=== PATIENT | female | born 1950 | race Caucasian/White ===

== ENCOUNTER 2016-12-03 09:17 | Emergency (ER) | payer MEDICARE ==
[2016-12-03 09:37] VITALS: BMI 30.4
[2016-12-03 09:41] VITALS: TEMP 98
--- NOTE | 2016-12-03 10:42 | C.PDOC ---
History Of Present Illness 66 yr old female with PMHx of HTN, presents to the ER stating she ran out of her blood pressure medication 2 days ago and is requesting a refill. Patient denies fever, chest pain, SOB, nausea, vomiting, headache, weakness or numbness. Time Seen by Provider: 12/03/16 10:25 Chief Complaint (Nursing): High Blood Pressure History Per: Patient History/Exam Limitations: no limitations Onset/Duration Of Symptoms: Days (2 ) Past Medical History Reviewed: Historical Data, Nursing Documentation, Vital Signs Vital Signs: Last Vital Signs Temp 98.0 F 12/03/16 09:37 Pulse 65 12/03/16 11:22 Resp 18 12/03/16 11:22 BP 152/85 H 12/03/16 11:27 Pulse Ox 98 12/03/16 11:22 - Medical History PMH: Anxiety, HTN - [facility] Procedures INJECT/INFUSE NEC (10/31/13) Family History: States: No Known Family Hx - Social History Hx Alcohol Use: No Hx Substance Use: No - Immunization History Hx Tetanus Toxoid Vaccination: No Hx Influenza Vaccination: Yes (2017) Hx Pneumococcal Vaccination: No Review Of Systems Except As Marked, All Systems Reviewed And Found Negative. Constitutional: Negative for: Fever Cardiovascular: Negative for: Chest Pain Respiratory: Negative for: Shortness of Breath Gastrointestinal: Negative for: Nausea, Vomiting Neurological: Negative for: Weakness, Numbness, Headache Physical Exam - Physical Exam Appears: Non-toxic, No Acute Distress Skin: Warm, Dry, No Rash Head: Atraumatic, Normacephalic Oral Mucosa: Moist Chest: Symmetrical, No Tenderness Cardiovascular: Rhythm Regular, No Murmur Respiratory: Normal Breath Sounds, No Rales, No Rhonchi, No Stridor, No Wheezing Extremity: Normal ROM, No Swelling Neurological/Psych: Oriented x3, Normal Speech, Normal Motor ED Course And Treatment O2 Sat by Pulse Oximetry: 99 Medical Decision Making Medical Decision Making: PLAN: * Lisinopril PO Disposition Counseled Patient/Family Regarding: Need For Followup - Disposition Referrals: [facility] [Outside] Disposition: HOME/ ROUTINE Disposition Time: 11:03 Condition: GOOD Prescriptions: Lisinopril/Hydrochlorothiazide [Lisinopril-Hctz 20-25 mg Tab] 1 tab PO DAILY # 30 tablet Forms: Gen Discharge Inst Faroese - Clinical Impression Clinical Impression: Medication refill - Scribe Statement The provider has reviewed the documentation as recorded by the Scribe Jenae Barth Provider Attestation: All medical record entries made by the Mitchibe were at my direction and personally dictated by me. I have reviewed the chart and agree that the record accurately reflects my personal performance of the history, physical exam, medical decision making, and the department course for this patient. I have also personally directed, reviewed, and agree with the discharge instructions and disposition.
[2016-12-03 11:23] VITALS: PULSE 65; RESP 18
[2016-12-03 11:28] VITALS: BP 152/85
[2016-12-03 11:53] VITALS: O2SAT 99
== END 2016-12-03 11:28 | disposition home or self-care (01) ==
LOC: C.ER 09:17
DX: Z76.0 Encounter for issue of repeat prescription (principal)

== ENCOUNTER 2017-01-18 19:28 | Observation (INO) | payer MEDICARE, OTHER ==
[2017-01-18 19:28] VITALS: BMI 30.4
--- NOTE | 2017-01-18 20:29 | C.PDOC ---
History Of Present Illness Patient, with a past medical history of hypertension and anxiety, presents to the ED complaining of possible rectal bleeding that began prior to arrival. Patient states she saw blood on her pants, but was not sure where she was bleeding from. Patient denies any fever, chills, nausea, or vomiting. Time Seen by Provider: 01/18/17 20:28 Chief Complaint (Nursing): GI Problem History Per: Patient History/Exam Limitations: no limitations Onset/Duration Of Symptoms: Mins (prior to arrival ) Severity: None Pain Scale Rating Of: 0 Recent travel outside of the [place]: No Additional History Per: Patient Past Medical History Reviewed: Historical Data, Nursing Documentation, Vital Signs Vital Signs: Last Vital Signs Temp 98.5 F 01/18/17 19:34 Pulse 102 H 01/18/17 19:34 Resp 19 01/18/17 19:34 BP 150/90 01/18/17 19:34 Pulse Ox 99 01/18/17 21:40 - Medical History PMH: Anxiety, HTN - [facility] Procedures INJECT/INFUSE NEC (10/31/13) Family History: States: No Known Family Hx - Social History Hx Alcohol Use: No Hx Substance Use: No - Immunization History Hx Tetanus Toxoid Vaccination: No Hx Influenza Vaccination: Yes (2017) Hx Pneumococcal Vaccination: No Review Of Systems Constitutional: Negative for: Fever, Chills ENT: Negative for: Throat Pain Cardiovascular: Negative for: Chest Pain Respiratory: Negative for: Shortness of Breath Gastrointestinal: Positive for: Other (rectal bleeding). Negative for: Nausea, Vomiting Genitourinary: Negative for: Dysuria Musculoskeletal: Negative for: Back Pain Skin: Negative for: Rash, Lesions, Jaundice, Bruising Neurological: Negative for: Weakness Psych: Negative for: Anxiety Physical Exam - Physical Exam Appears: Non-toxic, No Acute Distress Skin: Warm, Dry Head: Atraumatic, Normacephalic Eye(s): bilateral: Normal Inspection Oral Mucosa: Moist Neck: Supple Chest: Symmetrical Cardiovascular: Rhythm Regular Respiratory: No Rales, No Rhonchi, No Wheezing Gastrointestinal/Abdominal: Soft, No Tenderness, No Distention, No Guarding, No Rebound Rectal: Normal Exam, No Hemorrhoids, No Mass, No Tenderness, Other ((-)bleeding (+)brown stool in vault) Back: No CVA Tenderness Pelvic: No Vaginal Bleeding, No Vaginal Discharge, No Other (no obvious signs of blood or bleeding) Extremity: Bilateral: Atraumatic, Normal Color And Temperature Neurological/Psych: Oriented x3, Normal Speech, Normal Cognition Gait: Steady ED Course And Treatment - Laboratory Results Result Diagrams: 01/18/17 20:44 01/18/17 20:44 O2 Sat by Pulse Oximetry: 99 (room air) Pulse Ox Interpretation: Normal Progress Note: Plan: Labs, Chest x-ray, Protonix, IV fluids Disposition Discussed With DrAnkit: Mimi Riggs Comment: accepted the pt on his service and took over the care at 10:32 PM Counseled Patient/Family Regarding: Studies Performed, Diagnosis - Disposition Disposition: HOSPITALIZED Disposition Time: 20:29 Condition: FAIR - POA Present On Arrival: None - Clinical Impression Clinical Impression: Rectal bleed - Scribe Statement The provider has reviewed the documentation as recorded by the Scribe Danielle Riggs Provider Attestation: All medical record entries made by the Scribe were at my direction and personally dictated by me. I have reviewed the chart and agree that the record accurately reflects my personal performance of the history, physical exam, medical decision making, and the department course for this patient. I have also personally directed, reviewed, and agree with the discharge instructions and disposition.
[2017-01-18] MEDS ORDERED: Pantoprazole 80 MG in Sodium Chloride 0.9% 100 ML IV STA (20:35)
[2017-01-18] MEDS ORDERED: Sodium Chloride 0.9% 1,000 ML IV ONE (20:35)
[2017-01-18] MEDS ORDERED: Sodium Chloride 0.9% 100 ML ONE (20:48)
[2017-01-18 20:52] LABS: BASO % 0.3 % (0.0-2.0); EOS # 0.2 K/uL (0.0-0.7); EOS % 1.7 % (0.0-4.0); HEMATOCRIT 37.6 % (34.0-47.0); LYMPH # 1.9 K/uL (1.0-4.3); MEAN CELL VOLUME 89.4 fL (81.0-99.0); MEAN CORPUSCULAR HGB CONC 33.5 g/dL (33.0-37.0); MEAN PLATELET VOLUME 8.1 fL (7.2-11.7); MONO # 0.9 K/uL (0.0-0.8); MONO % 8.9 % (0.0-10.0); RED CELL DISTRIBUTION WIDTH 13.9 % (11.5-14.5); WHITE BLOOD COUNT 9.8 K/uL (4.8-10.8)
[2017-01-18 21:00] LABS: CHLORIDE 99 mmol/L (98-107)
[2017-01-18 21:01] LABS: POTASSIUM 3.9 mmol/L (3.6-5.2); SODIUM 139 mmol/L (132-148)
[2017-01-18 21:03] LABS: ALB/GLOB RATIO 1.1 (1.0-2.1); AST/SGOT 31 U/L (14-36); BILIRUBIN,TOTAL 0.8 mg/dL (0.2-1.3); CARBON DIOXIDE 30 mmol/L (22-30); GFR AFRICAN-AMERICAN > 60; TOTAL PROTEIN 8.3 g/dL (6.3-8.3)
[2017-01-18 21:04] LABS: ALKALINE PHOSPHATASE 91 U/L (38-126); ALT/SGPT 31 U/L (9-52); BLOOD UREA NITROGEN 21 mg/dL (7-17); CALCIUM 9.4 mg/dl (8.6-10.4); GLUCOSE,RANDOM 92 mg/dL (65-105)
[2017-01-18 22:16] LABS: RBC URINE 12 /hpf (0-3); URINE BACTERIA RARE (<OCC); URINE BILIRUBIN NEGATIVE (NEGATIVE); URINE BLOOD 2+ (NEGATIVE); URINE COLOR Straw (YELLOW); URINE GLUCOSE (UA) NORMAL (Normal); URINE KETONE NEGATIVE (NEGATIVE); URINE PROTEIN NEGATIVE (NEGATIVE); URINE UROBILINOGEN NORMAL mg/dL (0.2-1.0); WBC URINE 4 /hpf (0-5)
[2017-01-18 22:18] LABS: URINE LEUKOCYTE ESTERASE TRACE Leu/uL (Negative)
[2017-01-19] MEDS ORDERED: Iohexol 350mg/ml 100 ML ONE (00:18)
--- NOTE | 2017-01-19 00:58 | CT ---
EXAM: CT Abdomen and Pelvis With Intravenous Contrast CLINICAL HISTORY: 66 years old, female; Pain; Abdominal pain; Additional info: Rectal bleed TECHNIQUE: Axial computed tomography images of the abdomen and pelvis with intravenous contrast. This CT exam was performed using one or more of the following dose reduction techniques: automated exposure control, adjustment of the mA and/or kV according to patient size, and/or use of iterative reconstruction technique. Coronal and sagittal reformatted images were created and reviewed. CONTRAST: 100 mL of [id number] administered intravenously. EXAM DATE/TIME: 01/18/2017 11:22 PM COMPARISON: There are no prior studies for comparison. FINDINGS: Lower thorax: Heart size is normal. There are coronary calcifications. There is a hiatal hernia. Atelectasis at the lung bases ABDOMEN: Liver: There is fatty infiltration of the liver. Gallbladder and bile ducts: Gallbladder is partially distended. Common bile duct is prominent. Pancreas: Pancreas is mildly atrophic. Spleen: unremarkable Adrenals: Adrenals are unremarkable. Kidneys and ureters: unremarkable Stomach and bowel: Stomach is almost empty. Rotation is normal. There are mildly dilated small bowel loops in the left flank and left lower quadrant. There is mild wall and fold thickening. There is mild fecalization. There is transition to normal caliber in the left lower quadrant. Distal ileum is distended with fluid. Terminal ileum is mildly distended with fluid. Appendix is unremarkable. There is moderate stool in the right and proximal transverse colon. Distal colon is collapsed. There is diverticulosis. There is sigmoid wall thickening. Appendix: See stomach and bowel PELVIS: Bladder: unremarkable Reproductive: Uterus is enlarged for the patient's age, 11 x 6 x 7 cm. There is heterogeneous enhancement. Endometrium is thickened and lobular, 4.5 cm in width. There is irregular enhancement of the endometrium. Ovaries are difficult to identify. ABDOMEN and PELVIS: Intraperitoneal space: There is no significant fluid.There is no free air. Bones/joints: There are degenerative changes in the osseus structures. There is anterolisthesis L4 on L5. There is anterolisthesis L5 on S1. There is degenerative facet disease greatest L3/L4/L5. Soft tissues: unremarkable Vasculature: There are vascular calcifications. Distal thoracic aorta is ectatic. Lymph nodes: There is no pathologic adenopathy. IMPRESSION: Enlarged uterus with thickened enhancing endometrium, findings are suspicious for malignancy; enteritis with focal ileus and possible partial obstruction in the left lower quadrant; diverticulosis without CT findings of diverticulitis Additional findings as described above.
--- NOTE | 2017-01-19 06:13 | CP.PCM.HP ---
History of Present Illness - History of Present Illness History of Present Illness: 66-year-old female patient with a past medical history of hypertension and anxiety, presented to the ED with complaint of possible rectal bleeding that began prior to arrival. Patient states she saw blood on her parents, but was not sure where she was bleeding from. Denies any fever, chills, nausea, vomiting. Present on Admission - Present on Admission Any Indicators Present on Admission: No Past Patient History - Infectious Disease Hx of Infectious Diseases: None - Past Medical History & Family History Past Medical History?: Yes - Past Social History Smoking Status: Never Smoked - CARDIAC Hx Cardiac Disorders: Yes Hx Hypertension: Yes - PULMONARY Hx Respiratory Disorders: No - NEUROLOGICAL Hx Neurological Disorder: No - HEENT Hx HEENT Problems: No - RENAL Hx Chronic Kidney Disease: No - ENDOCRINE/METABOLIC Hx Endocrine Disorders: No - HEMATOLOGICAL/ONCOLOGICAL Hx Blood Disorders: No - INTEGUMENTARY Hx Dermatological Problems: No - MUSCULOSKELETAL/RHEUMATOLOGICAL Hx Musculoskeletal Disorders: No Hx Falls: No - GASTROINTESTINAL Hx Gastrointestinal Disorders: No - GENITOURINARY/GYNECOLOGICAL Hx Genitourinary Disorders: No - PSYCHIATRIC Hx Psychophysiologic Disorder: Yes Hx Anxiety: Yes Hx Substance Use: No - SURGICAL HISTORY Hx Surgeries: Yes (SEE COMMENT) Hx Orthopedic Surgery: Yes (right foot surgery) - ANESTHESIA Hx Anesthesia: Yes Hx Anesthesia Reactions: No Hx Malignant Hyperthermia: No Has any member of the family had a problem w/ anesthesia?: No Meds Allergies/Adverse Reactions: Allergies Allergy/AdvReac Type Severity Reaction Status Date / Time No Known Allergies Allergy Verified 02/19/17 09:53 Physical Exam - Constitutional Appears: Well - Head Exam Head Exam: ATRAUMATIC, NORMAL INSPECTION, NORMOCEPHALIC - Eye Exam Eye Exam: EOMI, Normal appearance, PERRL Pupil Exam: NORMAL ACCOMODATION, PERRL - ENT Exam ENT Exam: Mucous Membranes Moist, Normal Exam - Neck Exam Neck exam: Positive for: Normal Inspection - Respiratory Exam Respiratory Exam: Decreased Breath Sounds - Cardiovascular Exam Cardiovascular Exam: REGULAR RHYTHM, +S1, +S2 - GI/Abdominal Exam GI & Abdominal Exam: Diminished Bowel Sounds, Soft - Rectal Exam Rectal Exam: Deferred Results - Vital Signs Recent Vital Signs: Last Vital Signs Temp 98.4 F 01/19/17 00:32 Pulse 80 01/19/17 00:32 Resp 20 01/19/17 02:29 BP 144/88 01/19/17 00:32 Pulse Ox 98 01/19/17 00:32 - Labs Result Diagrams: 01/20/17 07:07 01/18/17 20:44 Assessment & Plan (1) Adenopathy Status: Acute (2) Arthritis of knee, left Status: Acute (3) Knee pain Status: Acute (4) Medication refill Status: Acute (5) Rectal bleed Status: Acute (6) Uterine mass Status: Acute - Assessment and Plan (Free Text) Plan: gi consult manager of software consult iwth dr. garrett for abn test protonix lovenox onhold scd as pt is bleeding marlys same ivf
--- NOTE | 2017-01-19 08:42 | CP.PCM.CON ---
History of Present Illness - History of Present Illness History of Present Illness: Asked by Dr. Riggs for a GI consultation on this patient. 66 year old female with history of HTN who presents to hospital with complaint of sudden onset bleeding which began yesterday at 5 pm. Prior to this she was in usual state of health. She noticed bright red blood in her underpants and came to hospital but cannot identify where the bleeding was coming from and admits it could possibly be from vagina. She denies any recent abdominal pain, nausea, vomiting , diarrhea, fever/chills, weight loss, or blood in stool during bowel movements. She claims to have had a colonoscopy 3 months ago in [place] which was normal as per patient. Social history: non-smoker, no ETOH use Family history: reviewed, patient denies history of colon cancer Review of Systems - Review of Systems Review of Systems: - All other comprehensive 12 point review of systems performed, negative - Cardiovascular Cardiovascular: absent: Acrocyanosis, Chest Pain, Chest Pain at Rest, Chest Pain with Activity, Claudication, Diaphoresis, Dyspnea, Dyspnea on Exertion, Edema, Irregular Heart Rhythm, Pain Radiating to Arm/Neck/Jaw, Leg Edema, Leg Ulcers, Lightheadedness, Orthopnea, Palpitations, Paroxysmal Nocturnal Dyspnea, Pedal Edema, Radiating Pain, Rapid Heart Rate, Slow Heart Rate, Syncope, Other - Respiratory Respiratory: absent: Cough, Dyspnea, Hemoptysis, Dyspnea on Exertion, Wheezing, Snoring, Stridor, Pain on Inspiration, Chest Congestion, Excessive Mucous Production, Change in Mucous Color, Pain with Coughing, Other - Gastrointestinal Gastrointestinal: Hematochezia - Reproductive: Female Reproductive:Female: Abnormal Vaginal Bleeding - Musculoskeletal Musculoskeletal: As Per HPI. absent: Abnormal Gait, Arthralgias, Atrophy, Back Pain, Deformity, Joint Swelling, Limited Range of Motion, Loss of Height, Muscle Cramps, Muscle Weakness, Myalgias, Neck Pain, Numbness, Radiating Pain into Limb, Stiffness, Tingling, Other - Neurological Neurological: As Per HPI. absent: Abnormal Gait, Abnormal Hearing, Abnormal Movements, Abnormal Speech, Behavioral Changes, Burning Sensations, Confusion, Convulsions, Disequilibrium, Dizziness, Numbness, Focal Weakness, Frequent Falls , Headaches, Lack of Coordination, Loss of Vision, Memory Loss, Paresthesias, Radicular Pain, Restless Legs, Sensory Deficit, Syncope, Tingling, Tremor, Vertigo, Weakness, Other Visual Disturbances, Other Past Patient History - Infectious Disease Hx of Infectious Diseases: None - Past Medical History & Family History Past Medical History?: Yes - Past Social History Smoking Status: Never Smoked - CARDIAC Hx Cardiac Disorders: Yes Hx Hypertension: Yes - PULMONARY Hx Respiratory Disorders: No - NEUROLOGICAL Hx Neurological Disorder: No - HEENT Hx HEENT Problems: No - RENAL Hx Chronic Kidney Disease: No - ENDOCRINE/METABOLIC Hx Endocrine Disorders: No - HEMATOLOGICAL/ONCOLOGICAL Hx Blood Disorders: No - INTEGUMENTARY Hx Dermatological Problems: No - MUSCULOSKELETAL/RHEUMATOLOGICAL Hx Musculoskeletal Disorders: No Hx Falls: No - GASTROINTESTINAL Hx Gastrointestinal Disorders: No - GENITOURINARY/GYNECOLOGICAL Hx Genitourinary Disorders: No - PSYCHIATRIC Hx Psychophysiologic Disorder: Yes Hx Anxiety: Yes Hx Substance Use: No - SURGICAL HISTORY Hx Surgeries: Yes (SEE COMMENT) Hx Orthopedic Surgery: Yes (right foot surgery) - ANESTHESIA Hx Anesthesia: Yes Hx Anesthesia Reactions: No Hx Malignant Hyperthermia: No Has any member of the family had a problem w/ anesthesia?: No Meds Allergies/Adverse Reactions: Allergies Allergy/AdvReac Type Severity Reaction Status Date / Time No Known Allergies Allergy Verified 01/18/17 19:37 - Medications Medications: Current Medications Lisinopril (Zestril) 20 mg PO DAILY QUINTIN Pantoprazole Sodium (Protonix Ec Tab) 40 mg PO DAILY QUINTIN Pneumococcal Polyvalent Vaccine (Pneumovax 23 Vaccine) 0.5 ml IM .ONCE ONE Stop: 01/21/17 10:01 Physical Exam - Constitutional Appears: Non-toxic, No Acute Distress - Head Exam Head Exam: NORMAL INSPECTION - Eye Exam Eye Exam: EOMI, Normal appearance, PERRL - ENT Exam ENT Exam: Mucous Membranes Moist - Respiratory Exam Respiratory Exam: Clear to Auscultation Bilateral - Cardiovascular Exam Cardiovascular Exam: REGULAR RHYTHM, +S1, +S2 - GI/Abdominal Exam GI & Abdominal Exam: Normal Bowel Sounds, Soft Additional comments: non tender to palpation in four quadrants no palpable hepato/splenomegaly - Rectal Exam Additional comments: normal anal sphincter tone, soft brown stool, no palpable lesions or presence of blood in rectal vault - Extremities Exam Extremities exam: Positive for: normal inspection - Neurological Exam Neurological exam: Alert, CN II-XII Intact, Oriented x3, Reflexes Normal - Psychiatric Exam Psychiatric exam: Normal Affect, Normal Mood - Skin Skin Exam: Dry, Intact, Normal Color, Warm Results - Vital Signs Recent Vital Signs: Last Vital Signs Temp 98.4 F 01/19/17 07:49 Pulse 60 01/19/17 07:49 Resp 20 01/19/17 07:49 BP 119/72 01/19/17 07:49 Pulse Ox 96 01/19/17 07:49 - Labs Result Diagrams: 01/18/17 20:44 01/18/17 20:44 Assessment & Plan - Assessment and Plan (Free Text) Assessment: HTN Sudden onset bleeding, likely secondary to abnormal uterine/vaginal bleeding No evidence of anemia on bloodwork, normal rectal exam, fecal occult blood negative CT imaging reviewed by me showing enlarged uterus with thickened endometrium concerning for malignancy, diverticulosis. No evidence of bowel obstruction. Plan: - Low sodium diet as tolerated - H/H stable, continue to monitor - Obtain copy of recent colonoscopy report - PRO[facility] consultation has been called given likely abnormal uterine bleeding - follow up recommendations - No planned GI intervention, will continue to monitor patient clinical course
--- NOTE | 2017-01-19 11:01 | RAD ---
HISTORY: GI Bleeding COMPARISON: Visualized lung bases on CT of the chest performed 01/19/17 TECHNIQUE: Chest, one view. FINDINGS: LUNGS: No focal consolidation. Please note that chest x-ray has limited sensitivity for the detection of pulmonary masses. PLEURA: No significant pleural effusion identified. No definite pneumothorax . CARDIOVASCULAR: Cardiomegaly. Atherosclerotic calcifications of the aortic knob. Ectatic aorta. OSSEOUS STRUCTURES: Degenerative changes. VISUALIZED UPPER ABDOMEN: Unremarkable. OTHER FINDINGS: None. IMPRESSION: Cardiomegaly. Atherosclerotic calcifications of the aortic knob.
[2017-01-19] MEDS: Pantoprazole 40 mg EC Tab PO SCH (11:05)
--- NOTE | 2017-01-19 15:31 | CP.PCM.CON ---
History of Present Illness - History of Present Illness History of Present Illness: Consult note for RESTAURANT SERVICE MANAGER attending, Dr. Ford HPI: Patient is a 66 year old female, with PMHx of HTN and anxiety, who presented to [facility] on 01/18 with complaint of sudden onset of bleeding. She states that she was walking in the supermarket when she felt sensation of "liquid running down her leg" at 5 pm. When she went to the restroom she noticed bright red blood soaking her underwear, so she came to the hospital. Patient states she believes the blood was coming from her rectum. She denies prior episodes of bleeding vaginally or rectally. She does admit to recent constipation but denies seeing blood on toilet paper or blood in stool during bowel movements. She admits to current lower abdominal pain, that is worst suprapubically. She describes the pain as "dull," 4/10 on the severity scale, that does not radiate. She is tolerating diet and admits passing gas, with non-bloody BM yesterday. Patient denies any bleeding vaginally or rectally since admission. She claims to have recent colonoscopy ("this year") which "was normal." She denies nausea, vomiting, diarrhea, chest pain, shortness of breath , fever/chills, urinary frequency, dysuria, or weight loss. PMHx: see above PSHx: 2 prior c-sections, umbilical hernia correction, tubal ligation OB Hx: 2 prior c-sections (no complications); Last pap smear 5 years ago ( results normal); Menopause: age 48 - denies spotting/bleeding since Social history: non-smoker, denies alcohol or ETOH use Family history: reviewed, patient denies history of colon cancer Meds: Lisinopril, Vitamin C, Coenzyme Q10, Allergies: NKA Review of Systems - Constitutional Constitutional: absent: Chills, Fever, Weight Loss - EENT Eyes: absent: Change in Vision Ears: absent: Decreased Hearing - Cardiovascular Cardiovascular: absent: Chest Pain, Dyspnea - Respiratory Respiratory: absent: Dyspnea, Hemoptysis - Gastrointestinal Gastrointestinal: Abdominal Pain (lower, suprapubic worst, 4/10, no radiation). absent: Change in Bowel Habits, Change in Stool Character, Diarrhea, Hematochezia, Nausea, Vomiting - Genitourinary Genitourinary: absent: Dysuria, Flank Pain, Hematuria - Menstruation Menstruation: Post Menopausal (menopause @ 48 yrs old) - Musculoskeletal Musculoskeletal: absent: Numbness, Tingling - Neurological Neurological: absent: Tingling, Weakness - Psychiatric Psychiatric: Anxiety Past Patient History - Infectious Disease Hx of Infectious Diseases: None - Past Medical History & Family History Past Medical History?: Yes - Past Social History Smoking Status: Never Smoked - CARDIAC Hx Cardiac Disorders: Yes Hx Hypertension: Yes - PULMONARY Hx Respiratory Disorders: No - NEUROLOGICAL Hx Neurological Disorder: No - HEENT Hx HEENT Problems: No - RENAL Hx Chronic Kidney Disease: No - ENDOCRINE/METABOLIC Hx Endocrine Disorders: No - HEMATOLOGICAL/ONCOLOGICAL Hx Blood Disorders: No - INTEGUMENTARY Hx Dermatological Problems: No - MUSCULOSKELETAL/RHEUMATOLOGICAL Hx Musculoskeletal Disorders: No Hx Falls: No - GASTROINTESTINAL Hx Gastrointestinal Disorders: No - GENITOURINARY/GYNECOLOGICAL Hx Genitourinary Disorders: No - PSYCHIATRIC Hx Psychophysiologic Disorder: Yes Hx Anxiety: Yes Hx Substance Use: No - SURGICAL HISTORY Hx Surgeries: Yes (SEE COMMENT) Hx Orthopedic Surgery: Yes (right foot surgery) - ANESTHESIA Hx Anesthesia: Yes Hx Anesthesia Reactions: No Hx Malignant Hyperthermia: No Has any member of the family had a problem w/ anesthesia?: No Meds Allergies/Adverse Reactions: Allergies Allergy/AdvReac Type Severity Reaction Status Date / Time No Known Allergies Allergy Verified 01/18/17 19:37 - Medications Medications: Current Medications Lisinopril (Zestril) 20 mg PO DAILY [facility] Last Admin: 01/19/17 11:05 Dose: 20 mg Pantoprazole Sodium (Protonix Ec Tab) 40 mg PO DAILY [facility] Last Admin: 01/19/17 11:05 Dose: 40 mg Pneumococcal Polyvalent Vaccine (Pneumovax 23 Vaccine) 0.5 ml IM .ONCE ONE Stop: 01/21/17 10:01 Physical Exam - Constitutional Appears: Non-toxic, No Acute Distress - Head Exam Head Exam: ATRAUMATIC, NORMOCEPHALIC - Eye Exam Eye Exam: EOMI Pupil Exam: PERRL - ENT Exam ENT Exam: Mucous Membranes Moist - Respiratory Exam Respiratory Exam: Clear to Auscultation Bilateral, NORMAL BREATHING PATTERN. absent: Accessory Muscle Use, Respiratory Distress - Cardiovascular Exam Cardiovascular Exam: REGULAR RHYTHM, +S1, +S2 - GI/Abdominal Exam GI & Abdominal Exam: Soft, Tenderness (lower abdomen, worst tenderness over suprapubica area, ). absent: Distended, Firm, Organomegaly - Rectal Exam Rectal Exam: absent: Bloody Stool Additional comments: no karey blood in rectal vault, normal sphincter tone, minimal stool, no lesions felt - Exam Speculum exam: Vaginal Bleeding (blood from cervical os). absent: Cervical Discharge, Foreign Body, NORMAL SPECULUM EXAM Bimanual exam: Uterine Enlargement, Uterine Tenderness - Extremities Exam Extremities exam: Positive for: pedal pulses present. Negative for: pedal edema - Neurological Exam Neurological exam: Alert, Oriented x3 - Psychiatric Exam Psychiatric exam: Anxious - Skin Skin Exam: Normal Color, Warm Results - Vital Signs Recent Vital Signs: Last Vital Signs Temp 98.4 F 01/19/17 07:49 Pulse 60 01/19/17 07:49 Resp 20 01/19/17 07:49 BP 119/72 01/19/17 07:49 Pulse Ox 96 01/19/17 07:49 - Labs Result Diagrams: 01/18/17 20:44 01/18/17 20:44 Assessment & Plan - Assessment and Plan (Free Text) Assessment: 66 year old female with PMHx of HTN, with vaginal bleeding likely from RESEARCH CHEF etiology. CT showing enlarged uterus with thickenend endometrium. Findings suspicious for malignancy. Plan: Vaginal bleeding - H/H stable, no hemorrhage - CT A/P (01/19/17): enlarged uterus with thickened enhancing endometrium. Suspicious findings for malignancy. 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 ( see report) - Pt given appointment to follow up with Dr. Ford as outpatient to schedule D&C , will require biopsy and pap smear - Other management per attending, Dr. Brian Riggs D/W Dr. Logan Robin DO, PGY-1
[2017-01-20 07:23] LABS: BASO % 0.3 % (0.0-2.0); EOS # 0.2 K/uL (0.0-0.7); EOS % 2.8 % (0.0-4.0); HEMATOCRIT 37.3 % (34.0-47.0); LYMPH % 28.7 % (20.0-40.0); MEAN CELL VOLUME 89.4 fL (81.0-99.0); MEAN CORPUSCULAR HEMOGLOBIN 29.8 pg (27.0-31.0); MEAN CORPUSCULAR HGB CONC 33.3 g/dL (33.0-37.0); MEAN PLATELET VOLUME 8.4 fL (7.2-11.7); MONO # 0.6 K/uL (0.0-0.8); MONO % 8.6 % (0.0-10.0)
--- NOTE | 2017-01-20 07:30 | CP.PCM.PN ---
Subjective - Date & Time of Evaluation Date of Evaluation: 01/20/17 Time of Evaluation: 09:00 - Subjective Subjective: Medicine Progress Note- Radha Ohrichi PGY2 Patient seen and examined. Patient states that she feels better today and is ready to go home. Patient continues to have bright red vaginal bleeding. Denies fever, chills, nausea, vomiting, chest pain, shortness of breath, and dizziness. Objective - Vital Signs/Intake and Output Vital Signs (last 24 hours): Temp Pulse Resp BP Pulse Ox 98.1 F 69 20 132/80 98 01/20/17 00:03 01/20/17 00:03 01/20/17 00:03 01/20/17 00:03 01/20/17 00:03 Intake and Output: 01/20/17 01/20/17 06:59 18:59 Intake Total 500 Balance 500 - Medications Medications: Current Medications Lisinopril (Zestril) 20 mg PO DAILY [facility] Last Admin: 01/19/17 11:05 Dose: 20 mg Pantoprazole Sodium (Protonix Ec Tab) 40 mg PO DAILY [facility] Last Admin: 01/19/17 11:05 Dose: 40 mg Pneumococcal Polyvalent Vaccine (Pneumovax 23 Vaccine) 0.5 ml IM .ONCE ONE Stop: 01/21/17 10:01 - Labs Labs: 01/20/17 07:07 PT 11.8 SECONDS (9.7-12.2) 01/18/17 20:44 INR 1.0 01/18/17 20:44 APTT 28 SECONDS (21-34) 01/18/17 20:44 - Constitutional Appears: Non-toxic, No Acute Distress - Head Exam Head Exam: ATRAUMATIC, NORMOCEPHALIC - Eye Exam Eye Exam: EOMI, Normal appearance - ENT Exam ENT Exam: Mucous Membranes Moist - Neck Exam Neck Exam: Normal Inspection - Respiratory Exam Respiratory Exam: Clear to Ausculation Bilateral, NORMAL BREATHING PATTERN. absent: Rhonchi, Wheezes, Respiratory Distress - Cardiovascular Exam Cardiovascular Exam: REGULAR RHYTHM, +S1, +S2 - GI/Abdominal Exam GI & Abdominal Exam: Soft, Normal Bowel Sounds. absent: Tenderness - Extremities Exam Extremities Exam: Normal Inspection - Neurological Exam Neurological Exam: Alert, Awake, Oriented x3 - Psychiatric Exam Psychiatric exam: Normal Affect, Normal Mood - Skin Skin Exam: Dry, Intact, Normal Color, Warm Assessment and Plan - Assessment and Plan (Free Text) Assessment: 1. Vaginal Bleeding - H/H stable, no hemorrhage - CT A/P (01/19/17): enlarged uterus with thickened enhancing endometrium. Suspicious findings for malignancy. 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 ( see report) - Pt given appointment to follow up with Dr. Ford as outpatient to schedule D&C , will require biopsy and pap smear. Spoke with Gynecology resident who states that the patient will be called by Dr. Ford's office to schedule an appointment. Patient should wait for call and will be given further instructions at that time. Patient should wear menstrual pads in the meantime.
[2017-01-20 08:45] VITALS: BP 134/83; PULSE 67; RESP 18; TEMP 98.7; O2SAT 97
--- NOTE | 2017-01-20 09:57 | CP.PCM.PN ---
Subjective - Date & Time of Evaluation Date of Evaluation: 01/20/17 Time of Evaluation: 11:00 - Subjective Subjective: clinically same Objective - Vital Signs/Intake and Output Vital Signs (last 24 hours): Temp Pulse Resp BP Pulse Ox 98.7 F 67 18 134/83 97 01/20/17 07:00 01/20/17 07:00 01/20/17 07:00 01/20/17 07:00 01/20/17 07:00 Intake and Output: 01/20/17 01/20/17 06:59 18:59 Intake Total 500 Balance 500 - Medications Medications: Current Medications Lisinopril (Zestril) 20 mg PO DAILY [facility] Last Admin: 01/19/17 11:05 Dose: 20 mg Pantoprazole Sodium (Protonix Ec Tab) 40 mg PO DAILY [facility] Last Admin: 01/19/17 11:05 Dose: 40 mg Pneumococcal Polyvalent Vaccine (Pneumovax 23 Vaccine) 0.5 ml IM .ONCE ONE Stop: 01/21/17 10:01 - Labs Labs: 01/20/17 07:07 PT 11.8 SECONDS (9.7-12.2) 01/18/17 20:44 INR 1.0 01/18/17 20:44 APTT 28 SECONDS (21-34) 01/18/17 20:44 - Constitutional Appears: Well - Head Exam Head Exam: ATRAUMATIC, NORMAL INSPECTION, NORMOCEPHALIC - Eye Exam Eye Exam: EOMI, Normal appearance, PERRL Pupil Exam: NORMAL ACCOMODATION, PERRL - ENT Exam ENT Exam: Mucous Membranes Moist, Normal Exam - Neck Exam Neck Exam: Full ROM, Normal Inspection. absent: Lymphadenopathy - Respiratory Exam Respiratory Exam: Decreased Breath Sounds - Cardiovascular Exam Cardiovascular Exam: REGULAR RHYTHM, +S1, +S2 - GI/Abdominal Exam GI & Abdominal Exam: Soft, Diminished Bowel Sounds - Rectal Exam Rectal Exam: Deferred Assessment and Plan (1) Adenopathy Status: Acute (2) Arthritis of knee, left Status: Acute (3) Knee pain Status: Acute (4) Medication refill Status: Acute (5) Rectal bleed Status: Acute (6) Uterine mass Status: Acute - Assessment and Plan (Free Text) Plan: Patient can be discharged today to home Continue Zestril Follow-up with SENIOR CLINICAL RESEARCH SCIENTIST as outpatient
--- NOTE | 2017-01-20 10:08 | CP.PCM.PN ---
Subjective - Date & Time of Evaluation Date of Evaluation: 01/20/17 Time of Evaluation: 10:01 - Subjective Subjective: Patient seen and examined. No acute events. She is tolerating PO without difficulty. She reports episode of vaginal bleeding yesterday. Denies rectal bleeding/melena. No nausea or vomiting. ROS otherwise negative in detail Objective - Vital Signs/Intake and Output Vital Signs (last 24 hours): Temp Pulse Resp BP Pulse Ox 98.7 F 67 18 134/83 97 01/20/17 07:00 01/20/17 07:00 01/20/17 07:00 01/20/17 07:00 01/20/17 07:00 Intake and Output: 01/20/17 01/20/17 06:59 18:59 Intake Total 500 Balance 500 - Medications Medications: Current Medications Lisinopril (Zestril) 20 mg PO DAILY [facility] Last Admin: 01/19/17 11:05 Dose: 20 mg Pantoprazole Sodium (Protonix Ec Tab) 40 mg PO DAILY [facility] Last Admin: 01/19/17 11:05 Dose: 40 mg Pneumococcal Polyvalent Vaccine (Pneumovax 23 Vaccine) 0.5 ml IM .ONCE ONE Stop: 01/21/17 10:01 - Labs Labs: 01/20/17 07:07 PT 11.8 SECONDS (9.7-12.2) 01/18/17 20:44 INR 1.0 01/18/17 20:44 APTT 28 SECONDS (21-34) 01/18/17 20:44 - Constitutional Appears: No Acute Distress - Eye Exam Eye Exam: absent: Scleral icterus - ENT Exam ENT Exam: Mucous Membranes Moist - Respiratory Exam Respiratory Exam: Clear to Ausculation Bilateral - Cardiovascular Exam Cardiovascular Exam: +S1, +S2 - GI/Abdominal Exam Additional comments: abdomen soft, non tender to palpation, no rebound or guarding, bowel sounds present - Back Exam Back Exam: absent: CVA tenderness (L), CVA tenderness (R) - Neurological Exam Neurological Exam: Alert, Oriented x3 - Skin Skin Exam: Dry Assessment and Plan - Assessment and Plan (Free Text) Assessment: This is a 66 year old female with h/o HTN who presents with vaginal bleeding. She denies any GI bleeding, stool occult negative. Last colonoscopy reportedly 3 mo ago and unremarkable by patient report. Abdominal CT with thickened endometrium and possible enteritis. Plan: Monitor H/H Monitor for any evidence of GI bleeding Follow up HAND FRETTED INSTRUMENT MAKER input re: thickened endometrium/baginal bleeding Advance diet as tolerated Antiemetic if needed As no evidence of overt or occult GI bleeding and reportedly recent negative colonoscopy, no further GI intervention planned at this time Please call with any further questions or concerns
[2017-01-20] MEDS: Pantoprazole 40 mg EC Tab PO SCH (11:23)
[2017-01-21] MEDS ORDERED: Pneumococcal 23-Valent Vaccine IM ONE (10:00)
== END 2017-01-20 15:25 | disposition home or self-care (01) ==
LOC: C.ER 19:28 → C.9E 22:31 → C.3T 22:59
PROVIDERS: ADMIT Internal Medicine Nephrology; ATTEND Internal Medicine Nephrology
DX: N93.9 Abnormal uterine and vaginal bleeding, unspecified (principal); I10 Essential (primary) hypertension
CPT/HCPCS: 36415; 71010; 74177; 80053; 81001; 85025; 85610; 85730; 86850; 86900; 99285; C9113; G0328; G0378; J7040; Q9967